=== PATIENT | female | born 1940 | race Caucasian/White ===

== ENCOUNTER 2017-09-01 08:59 | Outpatient (CLI) | payer MEDICARE ==
--- NOTE | 2017-09-15 16:13 | MMO ---
BILATERAL MAMMOGRAMS: 09/01/17 HISTORY: Screening mammography. COMPARISON: Prior study from [place] dated 07/13/07. FINDINGS: Scattered fibroglandular densities are again demonstrated. Calcified breast implants are in place. Lo bulation and protrusion of the superior medial aspect of the left breast implant is stable compared t o the prior study. No dominant mass or suspicious calcifications are evident. The study was evaluated with the assistance of computer aided detection. IMPRESSION: BI-RADS 2: Benign Finding(s) Routine annual screening mammography (for women over age 40). POS: NEENA
== END 2017-09-01 09:00 | disposition home or self-care (01) ==
LOC: SCSMAMMO 08:59
PROVIDERS: ATTEND Family Medicine
DX: Z12.31 Encounter for screening mammogram for malignant neoplasm of breast (principal)
CPT/HCPCS: 77067; G0202

== ENCOUNTER 2023-12-08 09:00 | Outpatient (CLI) | payer MEDICARE, OTHER | END 2023-12-08 09:01 | disposition home or self-care (01) | LOC: BICCT 09:00 | PROVIDERS: ATTEND Family Medicine | DX: R91.1 Solitary pulmonary nodule (principal) | CPT/HCPCS: 71260 ==

== ENCOUNTER 2024-11-22 13:30 | Outpatient (CLI) | payer MEDICARE | END 2024-11-22 13:31 | disposition home or self-care (01) | LOC: BICRAD 13:30 | PROVIDERS: ATTEND Family Medicine | DX: M47.26 Other spondylosis with radiculopathy, lumbar region (principal); M25.551 Pain in right hip; M25.552 Pain in left hip; M41.9 Scoliosis, unspecified | CPT/HCPCS: 72100 ==

== ENCOUNTER 2025-04-15 06:07 | Observation (INO) | payer MEDICARE ==
[2025-04-12 09:15] VITALS: BMI 21.6
[2025-04-15 07:09] LABS: #Basophils 0.06 10x3/uL (0.0-0.2); #Eosinophils 0.30 10x3/uL (0.0-0.7); #Monocytes 0.52 10x3/uL (0.11-0.59); #Neutrophils 2.03 10x3/uL (1.40-6.50); %Basophils 1.3 % (0.0-1.0); %Eosinophils 6.5 % (0.0-10.0); %Lymphocytes 37.1 % (21.0-51.0); %Monocytes 11.2 % (0.0-10.0); %Neutrophils 43.7 % (42.0-75.0); Hematocrit 37.1 % (36.0-47.0); Hemoglobin 13.0 g/dL (12.0-16.0); Mean Corpuscular Hemoglobin 33.1 pg (27.0-31.0); Mean Corpuscular Volume 94.4 fL (78.0-98.0); Platelet Count 250 10x3/uL (130-400); Red Blood Cell (RBC) Count 3.93 mill/uL (4.20-5.40); White Blood Cell (WBC) Count 4.64 10x3/uL (4.8-10.8)
[2025-04-15] MEDS ORDERED: Mag-Al 1200 mg/1200 mg/30 ML UDCUP PO PRN (07:12)
[2025-04-15] MEDS ORDERED: Ondansetron PF 4 MG/2 ML Vial IVP PRN (07:12)
[2025-04-15] MEDS ORDERED: diphenhydrAMINE 50 MG/ML VIAL IVP PRN (07:12)
[2025-04-15] MEDS ORDERED: fentaNYL PF 100 MCG/2 ML SYRINGE ONE (07:15)
[2025-04-15] MEDS ORDERED: Rocuronium Bromide 10 MG/ML (10ML VIAL) ONE (07:15)
[2025-04-15] MEDS ORDERED: Cyclobenzaprine 10 MG TAB PO PRN (07:15)
[2025-04-15] MEDS ORDERED: Ondansetron PF 4 MG/2 ML Vial ONE (07:15)
[2025-04-15] MEDS ORDERED: PROPOFOL 20 ML ONE (07:16)
[2025-04-15 07:26] LABS: Anion Gap 14 mmol/L (10-20); BUN (Urea Nitrogen) 17 mg/dL (9.8-20.1); Calc. Creatinine Clearance 46 mL/min (70-130); Calcium 9.8 mg/dL (7.8-10.44); Carbon Dioxide 26 mmol/L (23-31); Chloride 105 mmol/L (98-107); Glucose 124 mg/dL (83-110); Potassium 4.7 mmol/L (3.5-5.1); Sodium 140 mmol/L (136-145)
[2025-04-15] MEDS ORDERED: CEFAZOLIN 2 GM VIAL ONE (07:27)
[2025-04-15] MEDS ORDERED: SUGAMMADEX SODIUM 200 MG/2 ML VIAL ONE (08:35)
[2025-04-15] MEDS ORDERED: Glycopyrrolate 0.2 MG/ML 5 ML SYRINGE ONE (08:35)
[2025-04-15] MEDS: Acetaminophen/Codeine 30-300mg Tablet PO PRN (11:35)
[2025-04-16] MEDS: Milk Of Magnesia 30 ML UDCUP PO PRN (04:51)
[2025-04-16 08:09] VITALS: BP 137/68; TEMP 98.2
[2025-04-16] MEDS: Acetaminophen/Codeine 30-300mg Tablet PO PRN (08:54)
== END 2025-04-16 09:30 | disposition home or self-care (01) ==
LOC: SDC 06:07 → SURG B 07:12
PROVIDERS: ADMIT Neurological Surgery; ATTEND Neurological Surgery
PROC: 0SG0071 Fusion of Lumbar Vertebral Joint with Autologous Tissue Substitute, Posterior Approach, Posterior Column, Open Approach (ICD-10-PCS; principal; 2025-04-15)
DX: M48.061 Spinal stenosis, lumbar region without neurogenic claudication (principal); Z96.1 Presence of intraocular lens; Z90.710 Acquired absence of both cervix and uterus; Z91.048 Other nonmedicinal substance allergy status
CPT/HCPCS: 20930; 20937; 22612; 80048; 85025; 93005; 97112; 97116 ×2; 97530; C1713 ×2; C1889; J1100; J2405; J2704; J3010; J3373; 93010